=== PATIENT | male | born 1965 ===

== ENCOUNTER 2025-03-27 10:31 | Outpatient (CLI) | payer SELFPAY ==
[2025-03-27 11:55] LABS: Estmated Average Glucose 295; Hemoglobin A1C 11.9 % (4.0-6.0)
[2025-03-27 12:03] LABS: Creatinine Urine, Random 232 mg/dL (39-259)
[2025-03-27 12:06] LABS: Alanine Aminotransferase 19 U/L (0-41); Albumin Level 4.3 g/dL (3.5-5.2); Alkaline Phosphatase 90 U/L (40-130); Anion Gap 15.0 (5-19); Aspartate Amino Transferase 19 U/L (0-40); Blood Urea Nitrogen 7 mg/dL (8-23); Calcium 9.6 mg/dL (8.5-10.5); Carbon Dioxide 30 mmol/L (22-29); Chloride 99 mmol/L (98-107); Cholesterol 258 mg/dL (0-200); Globulin 3.5 g/dL (1.3-4.6); Glucose 233 mg/dL (65-115); HDL Cholesterol 50 mg/dL (60-100); Osmolality Calculated 295 mOsm/kg (285-295); Potassium 4.0 mmol/L (3.5-5.1); Sodium 140 mmol/L (136-145); Total Protein 7.8 g/dL (6.6-8.7); Triglycerides 184 mg/dL (0-150)
[2025-03-27 12:07] LABS: Microalbum Creatinine Ratio Ur 65 mg/dL (0-20)
== END 2025-03-27 10:32 | disposition home or self-care (01) ==
PROVIDERS: Visit Provider Internal Medicine
DX: E78.2 Mixed hyperlipidemia (principal); E11.9 Type 2 diabetes mellitus without complications
CPT/HCPCS: 36415; 80053; 80061; 82044; 83036